=== PATIENT | male | born 1955 ===

== ENCOUNTER → 2022-03-10 13:14 | Outpatient (CLI) | payer OTHER, SELFPAY ==
--- NOTE | ~2022-03-10 | CT_ITS ---
EXAMINATION: CT sinus wo con DATE: 03/10/2022 13:46 INDICATION: Chronic sinusitis. TECHNIQUE: Computed tomography (CT) of the paranasal sinuses was performed without intravenous contra st. Iterative reconstruction technique was employed. The dose-length product was 267.62 mGy-cm. COMPARISON: None FINDINGS: There is mild mucosal thickening in right frontal sinus. There is mild mucosal thickening i n the anterior ethmoid sinuses. Sphenoid sinus is clear. There is mild mucosal thickening in the maxi llary sinuses at the ostia. The ostiomeatal units are patent. There is rightward deviation of the ronit al septum. IMPRESSION: 1. Mild mucosal thickening in the paranasal sinuses. 2. Rightward deviation of the nasal septum. Reviewed, dictated and finalized at location A.
== END ==
PROVIDERS: PCP Internal Medicine; Visit Provider Otolaryngology
DX: J32.9 Chronic sinusitis, unspecified (principal); J34.2 Deviated nasal septum
CPT/HCPCS: 70486

== ENCOUNTER 2022-12-28 14:24 | Outpatient (CLI) | payer OTHER, SELFPAY ==
--- NOTE | 2022-12-28 | ECHO_ITS ---
Patient Info Name: Norm Woo Age: 67 years : 1955 Gender: Male Ht: 74 in Wt: 260 lbs BSA: 2.52 m2 HR: 100 bpm BP: 158 / 106 mmHg Heart Rhythm: Sinus Rhythm Technical Quality: Poor Exam Date: 12/28/2022 2:55 PM Exam Location: [facility] Patient Status: Outpatient Admit Date: 12/28/2022 Staff Ordering Physician: MejiaJacky MD Retail Coverage Merchandiser: Wilma Napier RDCS Attending Provider: SophieJacky MD Exam Type: CA echo dop color flow w con Study Info Indications - EDEMA Complete two-dimensional, color flow and Doppler transthoracic echocardiogram is performed with contrast to opacify the left ventricle and to improve the deliniation of the left ventricle endocardial borders. Reason for Poor Study: poor echocardiographic windows Summary 1. There is some degree of aortic valvular disease with calcification and decreased leaflet mobility. There is poor imaging of the aortic valve and cannot assess for number of leaflets. 2. Left ventricular chamber dimension is normal. 3. Left ventricular systolic function is normal, estimated at 65-70%. 4. There is moderately increased left ventricular wall thickness. 5. The left ventricular diastolic function is grade I diastolic dysfunction. 6. There is mild aortic valve calcification. 7. The mitral valve annulus is mildly calcified. 8. There is mild tricuspid valve regurgitation. Left Ventricle Left ventricular chamber dimension is normal. Left ventricular systolic function is normal, estimated at 65-70%. There is moderately increased left ventricular wall thickness. The left ventricular diastolic function is grade I diastolic dysfunction. Right Ventricle Right ventricular chamber dimension is normal. Right ventricular systolic function is normal. Left Atria Left atrial chamber dimension is normal. Right Atria Right atrial chamber dimension is normal. Atrial Septum Intact interatrial septum visualized by color flow imaging. Aortic Valve There is some degree of aortic valvular disease with calcification and decreased leaflet mobility. There is poor imaging of the aortic valve and cannot assess for number of leaflets. The aortic valve is not well visualized. There is no aortic valve stenosis. There is trace aortic valve regurgitation. There is mild aortic valve calcification. Pulmonic Valve The pulmonic valve is normal. There is no pulmonic valve stenosis. There is trace pulmonic regurgitation. Mitral Valve There is no mitral valve stenosis. There is trace mitral valve regurgitation. The mitral valve annulus is mildly calcified. Tricuspid Valve The tricuspid valve leaflets are normal. There is no significant tricuspid valve stenosis. There is mild tricuspid valve regurgitation. No pulmonary hypertension, estimated pulmonary arterial systolic pressure is 14 mmHg. Pericardium/Pleural The pericardium appears normal. There is no pericardial effusion. Inferior Vena Cava Normal inferior vena cava with >50% collapse upon inspiration consistent with normal right atrial pressure, 10 mmHg. Aorta The aortic root size at the sinus of Valsalva is normal. Left Ventricular Outflow Tract Name Value Normal LVOT 2D LVOT Diameter 2.12 cm LVOT Doppler
[2022-12-28] MEDS: PERFLUTREN LIPID MICROSPHERES 1.5 ML VIAL DILUTED TO 10 ML TOTAL VOLUME IV PUSH (15:00)
== END 2022-12-28 14:25 | disposition home or self-care (01) ==
PROVIDERS: PCP Internal Medicine; Visit Provider Internal Medicine
DX: R60.0 Localized edema (principal)
CPT/HCPCS: C8929; Q9957

== ENCOUNTER 2024-06-17 09:28 | Outpatient (CLI) | payer OTHER, SELFPAY ==
--- NOTE | ~2024-06-17 | XR_ITS ---
XR chest 2V 06/17/2024 09:45 Indication: Cough Procedure: 2 view chest Comparison: 11/13/2012 Findings: Heart size normal. No focal air space disease, pulmonary edema, pleural effusion or suspect ed pneumothorax. There are healed bilateral rib fractures. No acute osseous abnormality. Impression: 1: No acute cardiopulmonary disease. Reviewed, dictated and finalized at location A. [employer] Impression: 1: No acute cardiopulmonary disease.
--- OUTSIDE RECORDS SUMMARY | 2024-06-17 10:06 | XMS_ITS | CONTINUITY OF CARE DOCUMENT ---
Author Name jeet marcano Address Unknown Organization [facility] Address [id number] [place] [address] [address] [place] [address] Phone [phone] Care Team Providers Care Technology Resource Teacher Name Role Phone Deshaun Schmidt MD Unavailable [phone] Deshaun Schmidt MD Unavailable [phone] INSURANCE PROVIDERS Payer name Policy type / Coverage type [place] red green party ID [id number] P[employer] Other [id number] [facility] [id number] Other [id number]
--- OUTSIDE RECORDS SUMMARY | 2024-06-17 10:07 | XMS_ITS | Data Portability ---
Author Organization [place] [facility] [place] [facility], Main Office Address [address] [place] [address] Care Team Providers Care Manager Integrity Name Role Phone LUCIANO BA Primary Care Provider [phone] LUCIANO BA Referring Provider Assessment Encounter Date Assessment Date Assessment LastModified by Organization Details LastModified Time 10/12/2023 10/12/2023 This note is dictated and transcribed by [employer]. Linotype Machinist variances may occur. Despite proofreading, typographical errors may occur. Occasional wrong-word or '[id number]' substitutions may have occurred due to the inherent limitations of voice recording. Read the chart carefully and recognize, using context, where substitutions have occurred. [email or web address] Not available 10/12/2023 17:31:14 12/08/2023 12/08/2023 The patient has signs symptoms and history consistent with possible medial meniscal pathology. His x-rays really do not show much arthritis mild at worst. We talked about treatment options today in detail he states he is having a lot of pain he would like a shot of cortisone to try to calm down his knee pain so we can work until we get the MRI scan we will order an MRI scan to assess for possible medial meniscal tear. I also will give him some prednisone orally for 6 days burst and taper he will hold on the Celebrex while he is taking the prednisone pills. He will try to modify his activities and use ice particularly the end of the day. I will see him back once the MRI is done talk further about treatment options from there. He voiced understanding and agrees above plan. Today under sterile conditions I injected the patient's right knee joint in the office with 4 cc 0.5% Marcaine and 20 mg of Kenalog he tolerated the procedure well. [email or web address] Not available 12/08/2023 12:13:01 12/27/2023 12/27/2023 68-year-old male presents for evaluation of his right knee. He previously saw Celeste HAUSER. He reports pain for about 2-3 months. He denies any acute injury but just developed progressive pain as well as catching and locking. He previously had treatment with Celebrex, gabapentin, prednisone, and meloxicam. He also had a cortisone injection on 12/08/2023 which did not give him any lasting improvement. He still has catching and locking up of the knee on a regular basis. 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 He has a history of diabetes with A1c level 6.5. He currently smokes 1 pack a day. He currently rates his pain as 7/10 Review of systems per patient questionnaire Physical exam: Antalgic gait favoring the right side. He has tenderness palpation of the medial joint line. Range of motion 5-120, pain in terminal flexion, positive Linda's. Stable ligaments, neurovascular intact. X-rays of the knees were reviewed, demonstrating mild joint space narrowing of the medial compartment. He also has calcification of his vessels. MRI was reviewed, demonstrating a degenerative medial meniscus posterior root and body tear Given his mechanical symptoms and failure to improve with conservative management, we discussed surgery for partial medial meniscectomy. We discussed that this would primarily be for his mechanical symptoms and that he may or may not have improvement in his pain, especially if the pain was coming from pre-existing wear and tear rather than his meniscus tear. Risks, benefits, and alternatives to surgery were discussed with the patient. Risks include but are not limited to pain, stiffness, infection, bleeding, blood clot, injury to other structures including nerves or blood vessels, need for future surgery, and anesthesia risks. We discussed the goal of surgery is to improve symptoms but there is no guarantee of improvement and it is possible the patient's condition is worse after surgery. Patient agreed and would like to proceed. Given his comorbidities we would like him to obtain PCP a medical clearance prior to surgery. We discussed specifically that he has an elevated risk of complications including infection given his diabetes and smoking status and that he should try to cut back on nicotine as much as possible both before and after surgery, 3 minutes were spent discussing this. Not available 12/27/2023 14:54:39 02/09/2024 02/09/2024 68-year-old patient presents today for 1st postop follow-up after right knee medial meniscectomy on 01/30/[address] Lieberman. He states he is doing well overall, 5/10 pain. He is not taking any medicines for pain. He would like to return to work on Monday. 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 Physical exam: Incisions are clean dry and intact without signs and symptoms of infection. Sutures removed and Steri-Strips were placed. No bruising or edema. Slight tenderness with palpitation around incision sites. Able to perform knee range of motion, 0-110. Sensation intact. We discussed incisional care. We will release him to go back to work on Monday. He states that he will not be doing any squatting, lifting, or manual labor. We will see him back in 4 weeks for incision recheck. He is in agreement with this plan. Not available 02/09/2024 12:11:11 03/08/2024 03/08/2024 68-year-old patient presents today for postop follow-up after right knee medial meniscectomy on 01/30/[address] Lieberman. He is doing well overall, 3/10 pain. He states he sometimes feels a tingling sensation on the medial side of the knee, but it is not all the time, and that he feels like he is continuing to get better. He takes tylenol or ibuprofen as needed. Physical exam: Incisions are clean dry and intact without signs and symptoms of infection. No bruising or edema. Slight tenderness with palpitation around incision sites. Able to perform knee range of motion, 0-140. Sensation intact. He is progressing as expected. We no longer need to see him back for recheck unless issues arise. He is in agreement with this plan. Not available 03/08/2024 09:30:41 Plan of Treatment Reminders Order Date Submit Date Provider Last Modified By Organization Details Last Modified Time Details Appointments None recorded. Lab BMP, blood - FAX RESULTS TO 2023 024 [email or web address] Not available 08:29:29 Referral None recorded. Procedures injection/a spiration joint/bursa (PROC) 07/19/ 2024 07/19/2 024 [email or web address] In-Office Order, Internal Use Only DO Not Attach Compendium DO Not Attach Compendium, Do Not Delete/merge, [id number] 4 12:09:42 Surgeries None recorded. Imaging XR, knee 2023 024 [email or web address] [facility], [address], [place], [address], 4 13:16:31 MRI, knee, w/o contrast 2023 024 [facility] ([facility] [address] [place], [address], 4 19:54:33 Medication Orders Marcaine (PF) 0.5 % (5 mg/mL) injection solution 2023 024 [email or web address] [id number], [address] [facility], [place], [address], 4 13:16:31 Kenalog 10 mg/mL suspension for injection 2023 024 [facility] [id number] Not available 4 04:33:26 prednisone 10 mg tablets in a dose pack 2023 024 [email or web address] [id number], [address] [facility], [place], [address], 4 11:13:35 Patient TargetsNo targets recorded. Patient Instructions Encounter Date Encounter Id Patient Instructions Last Modified By Organization Details Last Modified Time 12/27/2023 [id number] rhythm strip, EKG* - FAX RESULTS TO [phone] Not available 12/27/2023 16:47:48 Reason for Referral None Reported. Results Created Date Observation Date Name Description Value Unit Range Abnormal Flag Note LastModifiedBy Organization Detail LastModifiedTime 12/08/19 24 XR, knee No observ ation record ed. [email or web address] [facility] [place] [address], [place], [address], 12/08/2023 12:14:05 12/15/19 24 12/15/2023 MRI, knee, w/o contr ast [facility] [address] [place] [address] Patien t Name: MILLER BREWSTER Access ion #: [id number] Sex: M : 1955 5 Dictat ed By: Angel Tang Attend ing Physic annika: CELESTE YEAGER Orderi ng Physic annika: CELESTE YEAGER Exam Date: 2023 12:52 PM Exam Name: MRI KNEE RT WO Admitt ing Diagno sis(es ): MRI KNEE RT WO, HISTOR Y: right knee pain COMPAR POLINA: MRI HIP LT WO on DOS: 4 TECHNI QUE: Using a1.5 T MR scanne r, the follow ing sequen edson were obtain ed of the right knee withou t admini strati on of intrav enous contra st: Axial, sagitt al and molina l interm ediate weight ed fat satura tion and sagitt al proton densit y and proton densit y cube with fat satura tion. FINDIN GS: The medial collat eral ligame nt and latera l collat eral ligame ntous comple x are intact . The anteri or and certified alcohol and drug counselor ior crucia te ligame nts are intact . The ACL appear s slight ly degene rative Comple x tear of the certified alcohol and drug counselor ior and latera l aspect of the medial menisc us. The latera l menisc us is intact with normal signal and morpho logy. There is no bone marrow signal abnorm ality. Cortic al margin s are intact . There is no bulky osteop hyte format ion. Articu lar cartil age fissur e is seen in the medial and patell ofemor al compar tments . The patell ar tendon , poplit eus tendon and veronika ceps tendon are intact with normal signal . The medial and latera l patell ar retina cula appear unrema rkable . Joint fluid is physio logic. There is no poplit eal cyst. Periar ticula r muscul ature demons trates no abnorm ality. Hoffa' s fat pad appear s normal . Mild subcut aneous edema. IMPRES SAMIA: Page 1 [facility] [address] [place] [address] [phone] Patien t Name: MILLER BREWSTER Access ion #: [id number] Sex: M : 1955 5 Dictat ed By: Angel Tang Attend ing Physic annika: TOY ALONSO Orderi Physic annika: CELESTE YEAGER Exam Date: 2023 12:52 PM Exam Name: MRI KNEE RT WO Admitt ing Diagno sis(es ): Comple x tear of the certified alcohol and drug counselor ior and latera l aspect of the medial menisc us. ACL appear s slight ly degene rative , but otherw ise intact . Articu lar cartil age fissur e is seen in the medial and patell ofemor al compar tments . Electr onical ly Signed by: Angel Tang at 2023 18:57: 13 PM Page 2 [facility] [address] [place], [address], 12/18/2023 08:13:36 Result Notes None recorded. Problems Name Problem SNOMED Code Status Onset Date Resolution Date Notes Provider Name and Address Organization Details Recorded Time Edema of lower extremity 565199857 Active 2022 Not Available [facility] 4 18:48:38 Pain of right knee joint 8395193633101 00 Active 2022 Not Available [facility] 4 18:48:38 Electromyo gram abnormal 104692343 Active 2022 Not Available [facility] 4 18:48:38 Low back pain 881086944 Active 2022 Not Available [facility] 4 18:48:38 Pain of left hip joint 3911084010578 00 Active 2023 LELO Hernández null, [place] [employer] [facility] 4 14:24:47 Metatarsal abraham of right foot 4591739902188 00 Active 2023 Lit Tai DPM [address], [address], [place], [address] , [facility] 4 15:05:10 Dystrophia unguium 82988643 Active 2023 Lit Tai DPM [address], [address], [place], [address] , [facility] 4 15:16:23 Tear of medial meniscus of knee 562435222 Active 2023 MURTAZA Rivas [address], [address], [place], [address] , [facility] 4 12:18:19 Tear of medial meniscus of knee 084431077 Active 2023 LELO Hernández null, [employer] [facility] 4 09:19:26 Tailor's bunion of right foot 1054724378245 109 Active 2019 Not Available [facility] 4 18:48:38 Tailor's bunion of left foot 0536752285766 100 Active 2021 Not Available [facility] 4 18:48:38 Benign essential hypertensi on 8081207 Active Not Available [facility] 4 18:48:38 Deviated nasal septum 309125144 Active 2021 Not Available [facility] 4 18:48:38 Acute sinusitis 00456056 Active Not Available [facility] 4 18:48:38 Abdominal pain 02410813 Active Not Available [facility] 4 18:48:38 Foot callus 417793690 Active 2021 Not Available [facility] 4 18:48:38 Pain in calf 956744428 Active Not Available [facility] 4 18:48:38 Knee pain Active Not Available [facility] 4 18:48:38 Type 2 diabetes mellitus without complicati on 521484464 Active 2021 Not Available [facility] 4 18:48:38 Pain in right foot 5779115687556 07 Active 2022 Not Available [facility] 4 18:48:38 Chronic maxillary sinusitis 06667968 Active 2021 Not Available [facility] 4 18:48:38 Chronic sphenoidal sinusitis 40685141 Active 2021 Not Available [facility] 4 18:48:38 Peripheral vascular disease 521450801 Active Not Available [facility] 4 18:48:38 Porokerato sis 064197121 Active 2019 Not Available [facility] 4 18:48:38 Chronic sinusitis 02742759 Active 2021 Not Available [facility] 4 18:48:38 Bunion 559404623 Active Not Available [facility] 4 18:48:38 Type 2 diabetes mellitus 25925118 Active 2016 Not Available [facility] 4 18:48:38 Allergic conjunctiv itis 723135390 Active Not Available [facility] 4 18:48:39 Cough 31105194 Active Not Available [facility] 4 18:48:39 Upper respirator y infection 15368712 Active 2021 Not Available [facility] 4 18:48:39 Hyperlipid emia 92521262 Active Not Available [facility] 4 18:48:39 Essential hypertensi on 97457244 Active 2021 Not Available [facility] 4 18:48:39 Chronic frontal sinusitis 83590088 Active 2021 Not Available [facility] 4 18:48:39 Rhinitis 35454318 Active Not Available [facility] 4 18:48:39 Diabetes mellitus 22946227 Active 2021 Not Available [facility] 4 18:48:39 Chronic ethmoidal sinusitis 89948533 Active 2021 Not Available [facility] 4 18:48:39 Abscess of peritoneum 59624659 Active Not Available [facility] 4 18:48:39 Hyperglyce melonie 40988558 Active Not Available [facility] 4 18:48:39 Notes:Some problems listed i n Documents: #[id number], #[id number] could not be added to this patient's chart. Please review these documents and add these problems to the patient's chart manually as needed. Problem Notes None recorded. Procedures Surgical History Date Name Laterality Status Provider Name and Address Organization Details Recorded Time 4 Callus Debridement, One completed Lit Tai DPM [address], [address], [place], [address], [employer] 10/12/2023 17:30:50 4 Joint Injection-Podi atry completed Lit Tai DPM [address], [facility] [address], [place], [address], [facility] 08/21/2023 15:05:37 3 ENDOSCOPY WITH REMOVAL OF SPHENOID SINUS TISSUE (SURG) completed Not Available [facility] 07/20/2022 04:56:56 5 Knee arthroscopy/queen rgery completed Not Available [facility] 07/20/2022 04:43:10 Imaging Results Imaging Date Name Status LastModified by Organiz ation Details LastModified Time 12/08/2023 XR, knee completed [email or web address] [facility] [address], [place], [address], 12/08/2023 12:14:05 12/15/2023 MRI, knee, w/o contrast completed [email or web address] [facility] [address] [facility], [place], [address], 12/18/2023 08:13:36 Procedure Notes None recorded. Medical Equipment None Reported. Allergies Allergen ID Allergen Name Allergen Category Reaction Reaction Severity Criticality Documentation Date Start Date Code Code System Note Provider Name and Address Organization Details Recorded Time 7151 prednison e medicatio n hallucina tions Not available Not available 07/20/2022 8640 RxNorm Not Available [facility] 3 04:56:37 Medications Name Sig Start Date Stop Date Status Note LastModified by Organization Details LastModified Time losartan 50 mg tablet TAKE 1 TABLET BY MOUTH EVERY DAY 10/11 completed Not Available Not Available Not Available celecoxib 200 mg capsule TAKE 1 CAPSULE BY MOUTH ONCE DAILY WITH FOOD OR MILK active Not Available Not Available No t Available cyclobenz aprine 10 mg tablet active Not Available Not Available No t Available amoxicill in 500 mg capsule TAKE 1 CAPSULE BY MOUTH 3 TIMES A DAY UNTIL GONE 11/24 completed Not Available Not Available Not Available metformin 500 mg tablet Take 1 tablet twice a day by oral route. active Not Available Not Available No t Available prednison e 10 mg tablet TAKE 1 TAB 3 TIMES A DAY X3 DAYS, 1 TAB TWICE DAILY X2 DAYS, 1 TAB ONCE DAILY X1 DAY 02/04 completed Not Available Not Available Not Available doxycycli ne hyclate 100 mg capsule TAKE 1 CAPSULE BY MOUTH TWICE A DAY FOR 7 DAYS active Not Available Not Available No t Available atorvasta tin 20 mg tablet TAKE 1 TABLET BY MOUTH EVERY DAY active Not Available Not Available No t Available nicotine 14 mg/24 hr daily transderm al patch 02/04 completed Not Available Not Available Not Available ammonium lactate 12 % lotion APPLY 2 APPLICAT IONS EVERY DAY BY TOPICAL ROUTE NEEDED. 08/08 completed Not Available Not Available Not Available azithromy shanta 250 mg tablet TAKE 2 TABLETS BY MOUTH TODAY, THEN TAKE 1 TABLET DAILY FOR 4 DAYS DIRECTED 02/04 completed Not Available Not Available Not Available ibuprofen 800 mg tablet TAKE 1 TABLET BY MOUTH EVERY 6 HOURS NEEDED FOR PAIN active Not Available Not Available No t Available benzonata te 200 mg capsule Take 1 capsule 3 times a day by oral route for 10 days. active Not Available Not Available No t Available hydrocodo ne 5 mg-acetam inophen 325 mg tablet TAKE 1 TABLET BY MOUTH EVERY 6 HOURS NEEDED FOR PAIN CONTROL active Not Available Not Available No t Available meloxicam 15 mg tablet TAKE 1 TABLET BY MOUTH EVERY DAY active Not Available Not Available No t Available lisinopri l 20 mg tablet 10/18 completed Not Available Not Available Not Available prednison e 20 mg tablet TAKE 2 TABLETS BY MOUTH EVERY DAY FOR 5 DAYS 08/23 completed Not Available Not Available Not Available metronida zole 500 mg tablet 02/18 completed Not Available Not Available Not Available nifedipin e ER 30 mg tablet,ex tended release TAKE 1 TABLET BY MOUTH EVERY DAY 08/23 completed Not Available Not Available Not Available ciproflox acin 500 mg tablet 02/18 completed Not Available Not Available Not Available sulfameth oxazole 800 mg-trimet hoprim 160 mg tablet 01/22 completed Not Available Not Available Not Available aspirin 81 mg tablet,de layed release Take 1 tablet every day by oral route. 08/07 completed Not Available Not Available Not Available sildenafi l 100 mg tablet TAKE ONE TABLET DAILY DIRECTED 07/08 completed Not Available Not Available Not Available amoxicill in 500 mg tablet Take 1 tablet 3 times a day by oral route for 7 days. 04/11 completed Not Available Not Available Not Available prednison e 10 mg tablets in a dose pack Take 1 tab by mouth, 3 times a day for 3 daysTake 1 tab by mouth 2 times a day for 2 daysTake 1 tab by mouth once a day for 1 day 02/04 completed Not Available Not Available Not Available potassium 99 mg tablet Take by oral route. 08/07 completed Not Available Not Available Not Available amoxicill in 875 mg tablet Take 1 tablet every 12 hours by oral route. active Not Available Not Available No t Available Kenalog 10 mg/mL suspensio n for injection Take 20 mg by injectio n route. 2023 active [facility]: [phone] 4-20 Not Available Not Available Not Available hydrocodo ne 7.5 mg-acetam inophen 325 mg tablet TAKE 1 TABLET BY MOUTH EVERY 4 HOURS NEEDED FOR PAIN 08/22 completed Not Available Not Available Not Available metformin 1,000 mg tablet TAKE 1 TABLET BY MOUTH EVERY DAY active Not Available Not Available No t Available olopatadi ne 0.1 % eye drops 1drop each eye daily x 10days 11/29 completed Not Available Not Available Not Available lisinopri l 10 mg tablet TAKE 1 TABLET BY MOUTH EVERY DAY 09/15 completed changed to Losartan by Dr Ba at visit 09/16/19 22 Not Available Not Available Not Available nicotine 21 mg/24 hr daily transderm al patch active Not Available Not Available Not Available diclofena c sodium 75 mg tablet,de layed release 02/18 completed Not Available Not Available Not Available monteluka st 10 mg tablet TAKE 1 TABLET BY MOUTH EVERY DAY active Not Available Not Available No t Available hydrocodo ne 5 mg-acetam inophen 500 mg tablet 10/18 completed Not Available Not Available Not Available furosemid e 20 mg tablet TAKE 1 TABLET BY MOUTH EVERY DAY NEEDED active Not Available Not Available No t Available gabapenti n 100 mg capsule TAKE 1 CAPSULE BY MOUTH TWICE A DAY active Not Available Not Available No t Available azelastin e 137 mcg (0.1 %) nasal spray INSTILL 2 SPRAYS INTO THE NOSTRILS TWICE DAILY 08/07 completed Not Available Not Available Not Available ibuprofen 600 mg tablet TAKE 1 TABLET BY MOUTH EVERY 6 HOURS NEEDED FOR PAIN. TAKE WITH FOOD 06/25 completed Not Available Not Available Not Available cefuroxim e axetil 500 mg tablet TAKE 1 TABLET BY MOUTH EVERY 12 HOURS FOR 10 DAYS active Not Available Not Available No t Available levofloxa shanta 500 mg tablet Take 1 tablet every 24 hours by oral route. 10/15 completed Not Available Not Available Not Available methylpre dnisolone 4 mg tablets in a dose pack TAKE 6 TABLETS ON DAY 1 DIRECTED ON PACKAGE AND DECREASE BY 1 TAB EACH DAY FOR A TOTAL OF 6 DAYS 11/24 completed Not Available Not Available Not Available albuterol sulfate HFA 90 mcg/actua tion aerosol inhaler INHALE 1 - 2 PUFFS BY MOUTH EVERY 4 - 6 HOURS NEEDED FOR SHORTNES S OF BREATH/W HEEZING 12/07 completed Not Available Not Available Not Available cefdinir 300 mg capsule TAKE 1 CAPSULE BY MOUTH EVERY 12 HOURS X10 DAYS 08/22 completed Not Available Not Available Not Available losartan 100 mg tablet TAKE 1 TABLET BY MOUTH EVERY DAY active Not Available Not Available No t Available fluticaso ne propionat e 50 mcg/actua tion nasal spray,armando pension USE 1 SPRAY IN EACH NOSTRIL EVERY DAY 08/07 completed Not Available Not Available Not Available loratadin e 10 mg tablet Take 1 tablet every day by oral route. 03/07 completed Not Available Not Available Not Available naproxen 500 mg tablet 05/26 completed Not Available Not Available Not Available amoxicill in 875 mg-potass ium clavulana te 125 mg tablet TAKE 1 TABLET BY MOUTH TWICE A DAY WITH FOOD UNTIL ALL MEDICATI ON IS COMPLETE D active Not Available Not Available No t Available nicotine 7 mg/24 hr daily transderm al patch active Not Available Not Available Not Available neomycin- polymyxin -hydrocor t 3.5 mg-10,000 unit/mL-1 % ear drops,armando p 04/11 completed Not Available Not Available Not Available azithromy shanta 500 mg tablet 02/18 completed Not Available Not Available Not Available Marcaine (PF) 0.5 % (5 mg/mL) injection solution Take 20 mg by injectio n route. 2023 active Not Available Not Available Not Avai lable Spiriva with [employer] r 18 mcg and inhalatio n capsules 08/02 completed Not Available Not Available Not Available BD Ultra-Fin e Mini Pen Needle 31 gauge x 3/16 USE TO INJECT VICTOZA DAILY active Not Available Not Available No t Available Tricor 145 mg tablet Take 1 tablet every day by oral route. active Not Available Not Available No t Available levalbute rol HFA 45 mcg/actua tion aerosol inhaler INHALE 2 PUFFS BY MOUTH EVERY 6 HOURS NEEDED active Not Available Not Available No t Available Nyamyc 100,000 unit/gram topical powder 02/18 completed Not Available Not Available Not Available fenofibra te 160 mg tablet 03/07 completed Not Available Not Available Not Available calcium 08/07 completed Not Available Not Available Not Available multivita min 08/07 completed Not Available Not Available Not Available BD Ultra-Fin e Short Pen Needle 31 gauge x 5/16 USE WITH VICTOZA DAILY 08/07 completed Not Available Not Available Not Available GaviLyte- N 420 gram oral solution 08/02 completed Not Available Not Available Not Available liragluti de 0.6 mg/0.1 mL (18 mg/3 mL) subcutane ous pen injector INJECT 1.8 MG UNDER THE SKIN ONCE DAILY active Not Available Not Available No t Available Bydureon 2 mg subcutane ous extended release suspensio n 03/15 completed Not Available Not Available Not Available magnesium 400 mg (as magnesium oxide) capsule Take by oral route. 08/07 completed Not Available Not Available Not Available QNASL 80 mcg/actua tion nasal aerosol spray active Not Available Not Available Not Available Vascepa 1 gram capsule Take 2 capsules twice a day by oral route for 30 days. 11/04 completed Not Available Not Available Not Available Virtussin AC 10 mg-100 mg/5 mL oral liquid TAKE 5 ML BY MOUTH 3 TIMES A DAY NEEDED FOR COUGH 03/10 completed Not Available Not Available Not Available Bydureon 2 mg/0.65 mL subcutane ous pen injector Inject 1 injector every week by subcutan eous route. 2016 active Not Available Not Available Not Avai lable QNASL 40 mcg/actua tion nasal aerosol spray Take 2 sprays every day by nasal route. active Not Available Not Available No t Available turmeric 08/07 completed Not Available Not Available Not Available Breztri Aerospher e 160 mcg-9mcg- 4.8mcg/ac tuation HFA aerosol inhaler TAKE 2 PUFFS BY MOUTH TWICE A DAY active Not Available Not Available No t Available Vitals Date Recorded Body height Body mass index (BMI) Body weight Heart rate Respiratory rate Oxygen saturation Oxygen saturation in Arterial blood by Pulse oximetry Systolic blood pressure Diastolic blood pressure Provider Name and Address Organization Details Last Updated DateTime 185.42 cm 29.7 kg/m2 846016. 28 g 108 /min 14 /min 98 % 98 % 182 mm[Hg] 112 mm[Hg] Key Villalobos [facility] 16:04:30 Date Recorded Body height Body mass index (BMI) Body weight Provider Name and Address Organization Details Last Updated DateTime 12/08/2023 185.42 cm 33.6 kg/m2 419579.05 g Esther Godinez [facility] 12/08/2023 11:32:32 Date Recorded Body height Body mass index (BMI) Body weight Provider Name and Address Organization Details Last Updated DateTime 12/27/2023 187.96 cm 33.4 kg/m2 413300.02 jose Aguilars [facility] Auth0 [facility] 12/27/2023 13:56:36 Date Recorded Body height Body mass index (BMI) Body weight Provider Name and Address Organization Details Last Updated DateTime 02/09/2024 187.96 cm 33.4 kg/m2 489519.02 jose Leong [facility] Auth0 [facility] 02/09/2024 09:18:45 Date Recorded Body height Body mass index (BMI) Body weight Provider Name and Address Organization Details Last Updated DateTime 03/08/2024 187.96 cm 32.1 kg/m2 739118.09 jose Leong [facility] Auth0 [facility] 03/08/2024 09:14:48 Social History Question Answer Notes LastModified by Organizat ion Details LastModified Time Tobacco Smoking Status Current Every Day Smoker Not Available [facility] 07/20/2022 04:30:17 Do You Have An Advance Directive? No MIGRATION.20906 60812 Information not available 07/20/2022 What Is Your Level Of Alcohol Consumption? Moderate MIGRATION.09582 26738 Information not available 07/20/2022 Do You Wear A Helmet When Biking? No MIGRATION.24716 62993 Information not available 07/20/2022 Are You Blind Or Do You Have Difficulty Seeing? No MIGRATION.71508 55287 Information not available 07/20/2022 What Is Your Level Of Caffeine Consumption? Moderate MIGRATION.82787 61356 Information not available 07/20/2022 How Much Tobacco Do You Chew? None MIGRATION.86606 19324 Information not available 07/20/2022 In The 14 Days Before Symptom Onset, Have You Had Close Contact With A Laboratory-confi rmed COVID-19 While That Case Was Ill? No MIGRATION.48419 56143 Information not available 07/20/2022 In The 14 Days Before Symptom Onset, Have You Had Close Contact With A Person Who Is Under Investigation For COVID-19 While That Person Was Ill? No MIGRATION.67781 87111 Information not available 07/20/2022 Are You Deaf Or Do You Have Serious Difficulty Hearing? No MIGRATION.05706 47669 Information not available 07/20/2022 What Type Of Diet Are You Following? REGULAR MIGRATION.88444 39679 Information not available 07/20/2022 Which Illicit Or Recreational Drugs Have You Used? None MIGRATION.92517 87732 Information not available 07/20/2022 Do You Or Have You Ever Used E-cigarettes Or Vape? 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 No MIGRATION.10213 41613 Information not available 07/20/2022 Are There Any Guns Present In Your Home? No MIGRATION.05281 54962 Information not available 07/20/2022 Do You Use Insect Repellent Routinely? No MIGRATION.02151 08756 Information not available 07/20/2022 Where Do You Live? [place] MIGRATION.16977 61112 Information not available 07/20/2022 Do You Have A Medical Power Of Licensed Certified Orthotist? No MIGRATION.11285 73138 Information not available 07/20/2022 What Was The Date Of Your Most Recent Tobacco Screening? 11/24/2022 Information not available 11/24/2022 Have You Ever Been Counseled For Unhealthy Alcohol Use? No MIGRATION.61840 36633 Information not available 07/20/2022 Do You Have Any Pets? Yes MIGRATION.62094 51724 Information not available 07/20/2022 What Is Your Relationship Status? MIGRATION.52010 12312 Information not available 07/20/2022 Do You Use Your Seat Belt Or Car Seat Routinely? Yes MIGRATION.13832 42736 Information not available 07/20/2022 Do You Have Smoke And Carbon Monoxide Detectors In Your Home? Yes MIGRATION.63629 52238 Information not available 07/20/2022 At What Age Did You Start Smoking Tobacco? 18 MIGRATION.69184 35842 Information not available 07/20/2022 Are You Passively Exposed To Smoke? Yes MIGRATION.54176 69486 Information not available 07/20/2022 Do You Or Have You Ever Used Smokeless Tobacco? Never Used Smokeless Tobacco MIGRATION.28611 77384 Information not available 07/20/2022 Are There Any Smokers In Your House? Yes MIGRATION.74116 99080 Information not available 07/20/2022 Do You Feel Stressed (tense, Restless, Nervous, Or Anxious, Or Unable To Sleep At Night)? FX57641-4 MIGRATION.39208 79583 Information not available 07/20/2022 Do You Use Any Illicit Or Recreational Drugs? No MIGRATION.09812 93772 Information not available 07/20/2022 Do You Use Sunscreen Routinely? No MIGRATION.48576 32396 Information not available 07/20/2022 Has Tobacco Cessation Counseling Been Provided? No MIGRATION.47188 00057 Information not available 07/20/2022 Have You Recently Traveled Abroad? No MIGRATION.80867 70428 Information not available 07/20/2022 Do You Have Any Dietary Restrictions? No MIGRATION.48948 99019 Information not available 07/20/2022 Do You Or Have You Ever Used Any Other Forms Of Tobacco Or Nicotine? No MIGRATION.66164 83007 Information not available 07/20/2022 Sex: Male Functional Status Question Answer Note LastModified by [employer] ion Details LastModified Time Do you have difficulty walking or climbing stairs? No MIGRATION.2094626 026 Information not available 07/20/2022 Do you have transportation difficulties? No MIGRATION.6628990 026 Information not available 07/20/2022 Do you have difficulty doing errands alone? No MIGRATION.9717239 026 Information not available 07/20/2022 Are you able to care for yourself? Yes MIGRATION.3740551 026 Information not available 07/20/2022 Do you have difficulty dressing or bathing? No MIGRATION.3252387 026 Information not available 07/20/2022 What is your exercise level? Moderate MIGRATION.5074139 026 Information not available 07/20/2022 Mental Status Question Answer Note LastModified by Organizat ion Details LastModified Time Do you have difficulty concentrating, remembering or making decisions? No MIGRATION.698215289 6 Information not available 07/20/2022 Family History Relationship Description Onset Age of this Age Resolved Age Notes LastModified by Organization Details LastModified Time Mother Malignant neoplastic disease MIGRATION.773 [id number] Not available 07/20/2022 04:43:13 Father Malignant tumor of lung MIGRATION.595 [id number] Not available 07/20/2022 04:43:13 Brother Tonsillectom y and adenoidectom y MIGRATION.246 [id number] Not available 07/20/2022 04:43:13 Notes:NO ENT Medical History Condition Response NERVE DISEASE N BLINDNESS N RHEUMATIC FEVER N KIDNEY STONES N BLADDER PROBLEMS N MRSA N OTHER # 1 N POLIO N LUNG DISEASE/DISORDER N RADIATION / CHEMOTHERAPY N COPD N Other # 2 N BLOOD DISEASES N EAR OR HEARING PROBLEMS N MUMPS N BOWEL PROBLEMS N DEPRESSION (INCLUDING POST ) N STROKE/TIA N ULCERS N BENIGN PROSTATIC HYPERPLASIA N MEASLES N MYOCARDIAL INFARCTION N OBESITY N GERD/NAUSEA N ANEURYSM N URINARY/BLADDER/KIDNEY PROBLEMS N CORONARY ARTERY DISEASE (CAD) N ADDICTION CONCERNS N ENDOMETRIOSIS N Impotence Y USE OF BLOOD THINNERS N SKIN PROBLEMS N GASTROINTESTINAL DISORDER N PERIPHERAL VASCULAR DISEASE Y MUSCLE,JOINT OR BONE PROBLEMS N GASTROINTESTINAL BLEEDING N BLOOD CLOTS N ASTHMA N CATARACTS N ERECTILE DYSFUNCTION N VARICOSITIES N GI PROBLEMS N Low Testosterone N INFERTILITY N AIDS/HIV N CHEMOTHERAPY / RADIATION N LIVER DISEASE N MALE HYPOGONADISM N HYPERTENSION Y Deficiency N TOURETTE'S N ANXIETY DISORDER N BLOOD TRANSFUSION N ANEMIA/BLOOD DISORDER N CHRONIC EAR INFECTIONS N BRONCHITIS N TUBERCULOSIS N GLAUCOMA N FOOT PROBLEM N DIVERTICULITIS N SLEEP APNEA N CHICKENPOX N INFECTIOUS DISEASE N HEART ARRHYTHMIA N PROSTATE N INSOMNIA N HIGH CHOLESTEROL / HYPERLIPIDEMIA Y HYPERTHYROIDISM N EYE PROBLEMS N EDEMA N CHRONIC PAIN SYNDROME N HYPOTHYROIDISM N CAROTID BLOCKAGE N CONSTIPATION N BACK / NECK PROBLEMS N HAVE YOU BEEN HOSPITALIZED OR SEEN IN [facility] IN THE PAST YEAR ? N ATHEROSCLEROSIS N BREAST PROBLEMS N DIALYSIS N ECZEMA N OSTEOPOROSIS N ARTHRITIS N APPENDICITIS N DIABETES, TYPE Y BAD TEETH N ENT N HEARTBURN / REFLUX N AUTISM SPECTRUM DISORDER (ASD) N HEPATITIS / LIVER DISEASE N GOUT N SLEEP DISORDER N ALZHEIMER'S DISEASE N Brain Problems N HERPES N DEMENTIA N HEADACHES/MIGRAINES N SEIZURES/EPILEPSY N VASCULAR DISEASE N PACEMAKER N Blood Disorder N DIZZINESS N HEART DISEASE/HEART PROBLEMS N KIDNEY DISEASE N MULTIPLE SCLEROSIS N CARDIAC ARRHYTHMIA N CANCER: SPECIFY N ATRIAL FIBRILLATION N Gall Stones N PULMONARY EMBOLISM N AUTOIMMUNE DISEASE N Immunizations Vaccine Type Date Status Note Provider Nam e and Address Organization Details Recorded Time Influenza, high-dose, quadrivalent, PF 03/07/2023 completed Not Available [facility] 4 18:48:39 COVID-19, mRNA, LNP-S, PF, 100 mcg/0.5mL dose or 50 mcg/0.25mL dose 09/04/2020 completed Not Available [facility] 4 18:48:39 COVID-19, mRNA, LNP-S, PF, 100 mcg/0.5mL dose or 50 mcg/0.25mL dose 08/12/2020 completed Not Available [facility] 4 18:48:39 Influenza, high-dose, quadrivalent, PF 03/07/2022 completed Not Available [facility] 4 18:48:39 Influenza, high-dose, quadrivalent, PF 03/10/2021 completed Not Available [facility] 4 18:48:39 Influenza, split virus, quadrivalent, PF 03/15/2017 completed Not Available [facility] 4 18:48:39 Influenza, split virus, quadrivalent, PF 03/16/2018 completed Not Available [facility] 4 18:48:39 Past Encounters Encounter ID Performer Location Encounter Start Date Encounter Closed Date Diagnosis/Indication Diagnosis SNOMED-CT Code Diagnosis ICD10 Code Diagnosis Note [id number] [facility] Internal Med [facility] [address] [place] [address] Jeralde., [address] [address] 11/04/2020 00:00:00 11/08/2020 21:25:36 [id number] [facility] [address] [place] [address] 11/11/2020 00:00:00 11/11/2020 11:38:18 [id number] _ATHENA_M IGRATION_ DEFAULT_1 _1 , 11/27/2020 00:00:00 11/27/2020 12:18:13 [id number] [facility] Internal Med [facility] [address] [place] [address] Jeralde., [address] [address] 03/10/2021 00:00:00 03/28/2021 13:34:37 [id number] _ATHENA_M IGRATION_ DEFAULT_1 _1 , 08/13/2021 00:00:00 08/15/2021 20:45:00 [id number] [facility] Internal Med [facility] [address] [place] [address] Jeralde., [address] [address] 09/15/2021 00:00:00 09/19/2021 12:37:23 [id number] [facility] Internal Med [facility] [address] [place] [address] 11/04/2021 00:00:00 11/04/2021 21:55:22 [id number] [facility] [place] [address] [place] [address] 03/03/2022 00:00:00 03/03/2022 11:59:50 [id number] [facility] Internal Med [facility] [address] [facility] 15 [place] [address] 03/07/2022 00:00:00 03/07/2022 21:01:02 [id number] [facility] [place] [address] [place] [address] 03/24/2022 00:00:00 03/24/2022 12:10:42 [id number] [facility] [place] [address] [place] [address] 06/09/2022 00:00:00 06/09/2022 14:34:14 [id number] [facility] Podiatry [address], [address] [place] [address] 07/12/2022 00:00:00 07/12/2022 17:02:28 [id number] Luciano Ba MD [facility] Internal Med [facility] [address] [place] [address] Ave., [address] [address] 08/22/2022 15:17:41 08/23/2022 08:45:42 Benign essential hypertension 5019508 I10 Type 2 janey betes mellitus 95495347 E11.9 Rhinitis 57796407 J00 Hyperlipidemia 36830857 E78.5 [id number] Luciano Ba MD [facility] Internal Med [facility] [address] , [place] [address] 11/24/2022 15:17:27 11/24/2022 16:28:03 Edema of lower extremity 791211950 R60.0 Pain of ri ght knee joint 5741624369 75439 M25.561 [id number] Luciano Ba MD [facility] Internal Med [facility] [address] [facility] 15 [place] [address] 01/02/2023 15:27:49 01/02/2023 16:45:34 Edema of lower extremity 498890027 R60.0 Essential hypertension 75897787 I10 [id number] Luciano Ba MD [facility] Internal Med [facility] [address] [facility] 15 [place] [address] 05/08/2023 15:15:20 05/08/2023 17:26:09 Type 2 diabetes mellitus 01348175 E11.9 Benign ess ential hypertension 6622296 I10 Hyperlipidemia 41466225 E78.5 [id number] Nghia Lieberman MD [facility] [place] [address] [place] [address] 08/09/2023 13:59:54 08/09/2023 15:23:56 Pain of left hip joint 4554056216 83480 M25.162 [id number] Lit Tai DPM [facility] [place] [address] [place] [address] 08/21/2023 14:26:57 08/21/2023 15:40:06 Metatarsalgia of right foot 4933253232 19088 M77.41 met head 5thinjecti on todayrecom mend supportive shoe gear and offloading follow-up in 1 month If continues be problemati c Dystrophia unguium 75940 009 L60.3 nails debrided without incident Diabetes mellitus 803314 09 E11.9 continue with diabetic control per PCP recommenda mgymuQ6m2- 1-23-- 5.8 [id number] Nghia Lieberman MD [facility] [place] [address] [place] [address] 08/30/2023 13:42:39 08/30/2023 15:51:07 Pain of left hip joint 2781822803 60327 M25.380 [id number] Lit Tai DPM [facility] [place] [address] [place] [address] 10/12/2023 15:58:10 10/13/2023 10:07:41 Porokeratosis 122939939 Q82.8 sub 5th metatarsal head right footdebrid ed without incidentap plication of salicylic acid 30 % remove Band-Aid after 1 hour and wash footmonito r for blistering if recurs keep clean and dry until healedfoll ow-up as needed Pain in right foot 57010 36577 61196 M79.620 [id number] MURTAZA Rivas [facility] [place] [address] [place] [address] 12/08/2023 11:23:50 12/08/2023 12:32:19 Pain of right knee joint 8597352588 97847 M25.561 Tear of me dial meniscus of knee 904238650 S83.241A [id number] Nghia Lieberman MD [facility] [place] [address] [place] [address] 12/27/2023 13:51:58 12/27/2023 14:44:34 Tear of medial meniscus of knee 201886781 S83.241A Pain of ri ght knee joint 7585482800 49474 M25.064 [id number] Kathy Ponce NP [facility] [place] [address] [place] [address] 02/09/2024 09:15:41 02/09/2024 09:29:25 Pain of right knee joint 6588762378 53134 M25.561 Tear of me dial meniscus of knee 641235249 S83.241A [id number] Kathy Ponce NP [facility] [place] [address] [place] [address] 03/08/2024 09:08:41 03/08/2024 09:32:43 Pain of right knee joint 0622917194 43695 M25.561 Health Concerns Section Related Observation LastModified by Organization Detai ls LastModified Time None Recorded Concern Status LastModified by Organization Details LastModified Time None Recorded Advance Directives Directive N: Payers Encounter Date Sequence Insurance Name Policy Number Policy Cline Covered Member ID Cline Member ID Guarantor Name 10/12/2023 1 [facility] [id number] Norm L Brewster [id number] Norm L Brewster 10/12/2023 2 [employer] [id number] Kari L Brewster [id number] I Norm L Brewsetr 12/08/2023 1 [facility] [id number] Norm L Brewster [id number] Norm L Brewster 12/08/2023 2 [employer] [id number] Kari L Brewster [id number] I Nrom L Brewster 12/27/2023 1 [facility] [id number] Norm L Brewster [id number] Norm L Brewster 12/27/2023 2 [employer] [id number] Kari L Brewster [id number] I Norm L Brewster 02/09/2024 1 [facility] [id number] Norm L Brewster [id number] Norm L Brewster 02/09/2024 2 [employer] [id number] Kari L Brewster [id number] I Norm L Brewster 03/08/2024 1 [facility] [id number] Norm L Brewster [id number] Norm L Brewster 03/08/2024 2 [employer] [id number] Kari L Brewster [id number] I Norm L Brewster Notes Date Note Type Note Provider Name and Address Organization Details Recorded Time 10/12/2023 text/html . Patient is a 68-year-old male who presents the office with complaints of pain under his sub 5th metatarsal head right foot. Patient states he has a painful callus that is sharp in nature. Patient denies any open wounds or infection. Patient states every step he takes is moderate to severe pain. Patient denies any open wounds or infection of the area. Patient underwent an injection at the area last visit which did not help. Patient states when he is at rest it does not hurt. Lit Tai, DPM [address], [place], [address], [facility] 10/12/2023 17:32:53 12/08/2023 text/html The patient returns with a new problem today he is 68 years old he states about a year ago he was stepping off a step when he felt a sudden twinge in his right knee. He has dealt with on and off pain over the past year but recently his pain has been more persistent and severe. He states it is about an 8 on a scale of 1-10 all localized medially. He can not twist or turn in the knee any weight-bearing causes significant pain in the medial compartment. Denies any significant effusion or swelling but he does have throbbing and aching that limits his daily activities he stands all day at work can hardly do his job because of his pain. He can not twist turn squat kneel go up and down stairs well has trouble with standing or walking despite occasional yadq-whb-rxzwzsb anti-inflammatory medication his symptoms continued he was then prescribed Celebrex 200 mg daily by his primary care physician this also has not really given him great relief. He denies any loss of motion but does have pain more with trying to extend his knee and actually lacks a few degrees of extension. He comes in today for initial evaluation treatment of his right knee pain medially as described above. The patient states several years ago he had a left knee medial meniscal tear partial medial meniscectomy and this feels similar to now what his right knee is doing. MURTAZA Rivas [address], [facility] [address], [place], [address], [facility] 12/08/2023 12:19:33
== END 2024-06-17 09:29 | disposition home or self-care (01) ==
PROVIDERS: PCP Internal Medicine; Visit Provider Internal Medicine
DX: R05.9 Cough, unspecified (principal)
CPT/HCPCS: 71046